=== PATIENT | male | born 1960 | race Caucasian/White ===

== ENCOUNTER 2017-01-04 11:07 | Emergency (ER) | payer OTHER ==
[2017-01-04] MEDS ORDERED: Sodium Chloride 0.9% 1000 ML 1,000 ML IV SCH (11:30)
--- NOTE | 2017-01-04 11:32 | ERPHSYRPT ---
- History of Present Illness Time Seen by Provider: 01/04/17 11:13 Source: patient Patient Subjective Stated Complaint: pt here for bleeding in [place] off and on since sunday, bright red with clots at times. pt has stage 4 prostrate ca. Triage Nursing Assessment: pt walked in, resp easy, no pain , urine is bright red in color with clot Physician History: CC: hematuria Hx: 56 y/o male patient of Dr Langley and Dr Verde. He has hx of stage 4 prostate CA. Hx of renal stone disease. He has gross hematuria, trouble starting stream, and passing clots today. Called and urologist wants CT scan. No fever or chills. No abd pain. chronic back pain. No N/V. Takes plavix but no other blood thinners. No injury. Timing/Duration: today Severity of Pain-Max: moderate Severity of Pain-Current: moderate Allergies/Adverse Reactions: No Known Drug Allergies Allergy (Verified 01/04/17 11:20) Home Medications: Clopidogrel Bisulfate 75 mg [PLAVIX 75 MG Tablet] 75 mg PO DAILY 08/09/13 [History] Diltiazem HCl 180 mg [Cardizem CD 180 MG] 360 mg PO DAILY 08/09/13 [ History] Glipizide 10 mg [Glucotrol 10 MG] 10 mg PO DAILY 08/09/13 [History] Insulin Aspart [Novolog Flexpen] 37 unit SQ BID 08/09/13 [History] Lisinopril/Hydrochlorothiazide [Lisinopril-Hctz 20-12.5 mg Tab] 20 mg PO DAILY 08/09/13 [History] Metformin HCl 1000 mg [Glucophage 1000 MG] 1,000 mg PO DAILY 08/09/13 [History] Metoprolol Tartrate 50 mg [Lopressor 50 MG] 100 mg PO DAILY 08/09/13 [ History] Simvastatin 40 mg [Zocor 40 mg] 40 mg PO DAILY 08/09/13 [History] Insulin Detemir [Levemir] 27 units BID 01/04/17 [History] Hx Tetanus, Diphtheria Vaccination/Date Given: No Hx Influenza Vaccination/Date Given: Yes Hx Pneumococcal Vaccination/Date Given: Yes Immunizations Up to Date: Yes - Past Medical History Pertinent Past Medical History: Yes Neurological History: TIA, Other ENT History: No Pertinent History Cardiac History: No Pertinent History Respiratory History: No Pertinent History Endocrine Medical History: Diabetes Type II Musculoskeletal History: No Pertinent History GI Medical History: No Pertinent History History: No Pertinent History Psycho-Social History: No Pertinent History Male Reproductive Disorders: No Pertinent History - Past Surgical History Past Surgical History: Yes Male Surgical History: Prostate Surgery - Social History Smoking Status: Never smoker Exposure to second hand smoke: No Drug Use: none Patient Lives Alone: No - Review of Systems Constitutional: Malaise, No Fever, No Chills Eyes: No Symptoms Ears, Nose, & Throat: No Symptoms Respiratory: No Cough Cardiac: No Chest Pain Abdominal/Gastrointestinal: No Abdominal Pain, No Nausea, No Vomiting Genitourinary Symptoms: Dysuria, Hematuria Skin: No Rash Neurological: No Headache All Other Systems: Reviewed and Negative - Nursing Vital Signs Nursing Vital Signs: Initial Vital Signs Temperature 98.0 F Temperature Source Oral Pulse Rate 72 Respiratory Rate 18 Blood Pressure [] 124/51 - Physical Exam General Appearance: alert Eye Exam: PERRL/EOMI Ears, Nose, Throat Exam: normal ENT inspection, moist mucous membranes Neck Exam: normal inspection, non-tender, supple Respiratory Exam: normal breath sounds, lungs clear Cardiovascular Exam: regular rate/rhythm Gastrointestinal/Abdomen Exam: soft, No tenderness, No distention Male Genital Exam: uncircumcised, No testicular tenderness (R), No testicular tenderness (L) Extremity Exam: normal inspection Neurologic Exam: alert, oriented x 3, cooperative, sensation nml, No motor deficits Skin Exam: warm, dry, No rash SpO2 Interpretation: normal SpO2: 98 Oxygen Delivery: Room Air Procedures - Additional Procedures Progress: Limited transabdominal ultrasound to check bladder post void residual urine per ERMD for hematuria. Bladder volume 85ml Bladder wall appears thickened - Course Nursing assessment & vital signs reviewed: Yes - CT Exams abd/pelvis CT Interpretation: Tele-radiologist Report (bladder wall thickening, prominent left extrarenal pelvis and left ureter wall thicknening/stranding with distal dilatation either from chronic obstructive uropathy vs inflammatory/infectious process. No renal stone disease. fatty umbilical/inguinal hernias.) Ordered Tests: Active Orders 24 hr Category Date Time Status Clean Catch Urine Specimen STAT Care 01/04/17 11:27 Active IV Insertion STAT Care 01/04/17 11:27 Active NPO (ED) STAT Care 01/04/17 12:13 Active ABDOMEN AND PELVIS W/0 CONTRAS [CT] Stat Exams 01/04/17 11:27 Completed CBC W DIFF Stat Lab 01/04/17 11:38 Completed CMP Stat Lab 01/04/17 11:38 Completed CULTURE,URINE Stat Lab 01/04/17 11:40 Received Lactic Acid Stat Lab 01/04/17 11:38 Completed PROTIME WITH INR Stat Lab 01/04/17 11:38 Completed PTT Stat Lab 01/04/17 11:38 Completed UA W/ MICROSCOPIC Stat Lab 01/04/17 11:40 Completed Medication Summary Generic Name Dose Route Start Last Admin Trade Name Freq PRN Reason Stop Dose Admin Sodium Chloride 1,000 mls @ 100 mls/hr 01/04/17 11:30 01/04/17 12:02 Sodium Chloride 0.9% 1000 Ml IV 02/03/17 11:29 100 mls/hr .Q10H PERFECTO Administration Lab/Rad Data: Laboratory Result Diagrams 01/04/17 11:38 01/04/17 11:38 Laboratory Results 01/04/17 01/04/17 01/04/17 Range/Units 11:40 11:38 11:38 WBC (4.0-10.5) K/mm3 RBC (4.1-5.6) M/mm3 Hgb (12.5-18.0) gm/dl Hct (42-50) % MCV (78-100) fl MCH (26-32) pg MCHC (32-36) g/dl RDW (11.5-14.0) % Plt Count (150-450) K/mm3 MPV (6-9.5) fl Gran % (36.0-66.0) % Lymphocytes % (24.0-44.0) % Monocytes % (0.0-12.0) % Eosinophils % (0.00-5.0) % Basophils % (0.0-0.4) % Basophils # (0-0.4) INR 1.01 (0.8-3.0) APTT 31.1 (24.1-36.1) SECONDS Sodium 142 (136-145) mEq/L Potassium 3.6 (3.5-5.1) mEq/L Chloride 106 (98-107) mEq/L Carbon Dioxide 25.9 (21-32) mEq/L Anion Gap 13.2 (5-15) MEQ/L BUN 22 H (9-20) mg/dL Creatinine 1.53 H (0.55-1.30) mg/dl Estimated GFR 50 ML/MIN Glucose 130 H (70-110) MG/DL Lactic Acid (0.4-2.0) Calcium 9.8 (8.5-10.1) mg/dL Total Bilirubin 0.40 (0.2-1.0) mg/dL AST 16 (15-37) U/L ALT 28 (12-78) U/L Alkaline Phosphatase 63 (46-116) U/L Serum Total Protein 7.1 (6.4-8.2) gm/dL Albumin 3.7 (3.4-5.0) g/dL Ur Collection Type VOID Urine Color RED (YELLOW) Urine Appearance CLOUDY (CLEAR) Urine pH 6.0 (5-6) Ur Specific [place] 1.015 (1.005-1.025) Urine Protein 100 (Negative) Urine Glucose (UA) 250 (NEGATIVE) mg/dL Urine Ketones NEGATIVE (NEGATIVE) Urine Nitrite NEGATIVE (NEGATIVE) Urine Bilirubin NEGATIVE (NEGATIVE) Urine Urobilinogen 0.2 (0-1) mg/dL Urine WBC (Auto) NEGATIVE (NEGATIVE) Urine RBC (Auto) LARGE (0-5) Devendra/ul Urine Microscopic RBC >100 (0-2) /HPF Urine Microscopic WBC 0-2 (0-5) /HPF Ur Epithelial Cells RARE (FEW) /HPF Urine Bacteria RARE (NEGATIVE) /HPF Specimen Received 01/04/17 1140 01/04/17 01/04/17 Range/Units 11:38 11:38 WBC 6.7 (4.0-10.5) K/mm3 RBC 4.09 L (4.1-5.6) M/mm3 Hgb 12.7 (12.5-18.0) gm/dl Hct 37.6 L (42-50) % MCV 91.9 (78-100) fl MCH 31.0 (26-32) pg MCHC 33.8 (32-36) g/dl RDW 13.3 (11.5-14.0) % Plt Count 256 (150-450) K/mm3 MPV 10.9 H (6-9.5) fl Gran % 67.5 H (36.0-66.0) % Lymphocytes % 16.7 L (24.0-44.0) % Monocytes % 13.1 H (0.0-12.0) % Eosinophils % 2.1 (0.00-5.0) % Basophils % 0.6 (0.0-0.4) % Basophils # 0.04 (0-0.4) INR (0.8-3.0) APTT (24.1-36.1) SECONDS Sodium (136-145) mEq/L Potassium (3.5-5.1) mEq/L Chloride (98-107) mEq/L Carbon Dioxide (21-32) mEq/L Anion Gap (5-15) MEQ/L BUN (9-20) mg/dL Creatinine (0.55-1.30) mg/dl Estimated GFR ML/MIN Glucose (70-110) MG/DL Lactic Acid 1.6 (0.4-2.0) Calcium (8.5-10.1) mg/dL Total Bilirubin (0.2-1.0) mg/dL AST (15-37) U/L ALT (12-78) U/L Alkaline Phosphatase (46-116) U/L Serum Total Protein (6.4-8.2) gm/dL Albumin (3.4-5.0) g/dL Ur Collection Type Urine Color (YELLOW) Urine Appearance (CLEAR) Urine pH (5-6) Ur Specific [place] (1.005-1.025) Urine Protein (Negative) Urine Glucose (UA) (NEGATIVE) mg/dL Urine Ketones (NEGATIVE) Urine Nitrite (NEGATIVE) Urine Bilirubin (NEGATIVE) Urine Urobilinogen (0-1) mg/dL Urine WBC (Auto) (NEGATIVE) Urine RBC (Auto) (0-5) Devendra/ul Urine Microscopic RBC (0-2) /HPF Urine Microscopic WBC (0-5) /HPF Ur Epithelial Cells (FEW) /HPF Urine Bacteria (NEGATIVE) /HPF Specimen Received - Progress Progress Note: 01/04/17 12:30 Pt has no pain here and declines pain meds. CT placed on [facility]. Called Dr Casey his [facility] urologist. 01/04/17 12:[address] Casey. He will review CT on cloud and compare to prior studies. States he has had some degree of hydronephrosis chronically. Will release with cipro and he will arrange office follow up. Counseled pt/family regarding: lab results, diagnosis, need for follow-up, rad results - Departure Time of Disposition: 12:47 Departure Disposition: Home Clinical Impression: Gross hematuria, stage 4 prostate cancer Condition: Fair Critical Care Time: No Referrals: BIANCA LANGLEY [Primary Care Provider] - FABY CASEY [NON-STAFF PHY W/O PRIVILEGES] - Instructions: Hematuria Additional Instructions: Rx cipro. Dr Casey will call with appointment. Return or call for fever, uncontrolled pain, vomiting, inabililty to empty bladder, or concerns. Prescriptions: Ciprofloxacin [Cipro 500 MG] 1 tab PO BID #10 tablet
[2017-01-04 11:42] LABS: Collection Type VOID
[2017-01-04 11:45] LABS: BASOPHIL % 0.6 % (0.0-0.4); Eosinophil % 2.1 % (0.00-5.0); Granulocytes % 67.5 % (36.0-66.0); Lymphocytes % 16.7 % (24.0-44.0); Mean Cell Volume 91.9 fl (78-100); Mean Platelet Volume 10.9 fl (6-9.5); Monocytes % 13.1 % (0.0-12.0); Platelet Count 256 K/mm3 (150-450); Red Blood Count 4.09 M/mm3 (4.1-5.6); Red Cell Distribution Width 13.3 % (11.5-14.0); White Blood Count 6.7 K/mm3 (4.0-10.5)
[2017-01-04] MEDS ORDERED: Sodium Chloride 0.9% 1000 ML 1,000 ML ONE (11:45)
[2017-01-04 11:51] LABS: Bacteria RARE /HPF (NEGATIVE); COMPLETE URINE MICROSCOPIC? YES; Epithelial Cells RARE /HPF (FEW); WBC 0-2 /HPF (0-5)
[2017-01-04 11:52] LABS: ADD URINE CULTURE? YES (NO)
[2017-01-04 11:58] LABS: INR 1.01 (0.8-3.0); PROTIME 11.3 SECONDS (8.83-12.87)
[2017-01-04 12:00] LABS: PTT 31.1 SECONDS (24.1-36.1)
[2017-01-04 12:06] LABS: ALBUMIN 3.7 g/dL (3.4-5.0); ANION GAP 13.2 MEQ/L (5-15); BILIRUBIN,TOTAL 0.4 mg/dL (0.2-1.0); Carbon Dioxide 25.9 mEq/L (21-32); Potassium 3.6 mEq/L (3.5-5.1); Total Protein 7.1 gm/dL (6.4-8.2)
--- NOTE | 2017-01-04 12:29 | XRAY ---
Indication: Right flank pain and hematuria. History of prostate cancer. Multiple contiguous axial images obtained through the abdomen and pelvis without contrast using renal stone protocol. Comparison: August 09, 2013. Lung bases demonstrate stable right lower lobe calcified granuloma. No infiltrate, consolidation, or effusion. Heart is not enlarged. Previous bilateral hydronephrosis has resolved. There is now left extrarenal pelvis with wall thickening and minimal stranding. Also left ureter wall thickening/stranding especially distally where there is also dilatation up to 10 mm. Findings may be from chronic obstructive uropathy versus inflammatory/infectious process. No renal calculus in either system. Stable left renal cortical thinning/scarring. Urinary bladder is normally distended with marked circumferential wall thickening concerning for underlying cystitis. There has been interval prostatectomy. Noncontrasted stomach and bowel loops appear nonobstructed. There is now mild diffuse scattered colonic fecal debris throughout with stable minimal sigmoid diverticulosis. Normal appendix. No free fluid/air. Remaining liver, gallbladder, pancreas, spleen, and adrenal glands appear unremarkable for noncontrast exam. Minimal aortoiliac calcifications without AAA. Osseous structures intact with again mild degenerative changes throughout the spine. No suspicious lytic or blastic lesion. Slightly enlarging small fatty umbilical hernia. Stable small bilateral fatty inguinal hernias. Bilateral focal anterior abdominal wall subcutaneous fatty induration presumed iatrogenic. Impression: 1. There is now prominent left extrarenal pelvis and left ureter wall thickening/stranding with distal dilatation either from chronic obstructive rapidly versus inflammatory/infectious process. 2. Urinary bladder continues to demonstrate marked circumferential wall thickening probably cystitis. 3. No renal calculus or evidence for obstructed uropathy in the right system. 4. New fecal stasis without obstruction. Stable sigmoid diverticulosis. 5. Minimally enlarging fatty umbilical hernia with stable small bilateral fatty inguinal hernias. CT DI 32.41
[2017-01-04 12:31] VITALS: O2SAT 98
[2017-01-04 13:03] VITALS: BP 113/62; PULSE 62
== END 2017-01-04 13:00 | disposition home or self-care (01) ==
LOC: ED 11:07
DX: R31.0 Gross hematuria (principal); C61 Malignant neoplasm of prostate; Z79.84 Long term (current) use of oral hypoglycemic drugs; Z86.73 Personal history of transient ischemic attack (TIA), and cerebral infarction without residual deficits
CPT/HCPCS: 36000; 36415; 74176; 80053; 81000; 83605; 85025; 85610; 85730; 87086; 96360; 96361; 99284